=== PATIENT | female | born 2005 | race Caucasian/White ===

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

== ENCOUNTER 2025-03-26 14:14 | Emergency (ER) | payer OTHER, SELFPAY ==
[2025-03-26 14:15] VITALS: BP 116/88; PULSE 103; RESP 20; TEMP 36.4; O2SAT 99; BMI 28.0
[2025-03-26 15:19] LABS: Hematocrit 42.7 % (37-47); Hemoglobin 14.3 g/dL (12.0-15.0); Immature Granulocytes Count 0.070 X10^3/uL (0.0-0.0); Mean Corp Hgb Conc 33.5 g/dL (32-36); Mean Corpuscular Volume 79.7 fL (81-99); Mean Platelet Vol. 10.2 fl (6.2-12.0); NRBC Flagged by Analyzer 0 % (0-5); Platelet Count 285 K/mm3 (150-450); RBC Distribution Width CV 13.5 % (11.6-14.6); RBC Distribution Width SD 38.5 fl (35.1-43.9); Red Blood Count 5.36 M/mm3 (4.2-5.4); White Blood Count 12.0 K/mm3 (4.4-11.0)
--- NOTE | 2025-03-26 15:33 | EX.ED.GENINJ ---
HPI History of Present Illness Chief Complaint: Nausea/Vomiting/Diarrhea Narrative Narrative: Chief complaint and HPI: 20-year-old female with past medical history of depression and anxiety presents for evaluation of nausea, vomiting, diarrhea after taking mom's injection of Ozempic. Patient states that she is trying to lose weight in which she injected herself with her mom's Ozempic today at approximately 8:30 AM. She states within an hour she began having nausea, vomiting, diarrhea. She denies any fever, chills, chest pain, shortness of breath, abdominal pain, dysuria. Does not believe herself to be but is unsure as she has irregular menstrual cycles since discontinuing her control. She does state that her last menstrual cycle was in February. Review of systems: See HPI Medications: As listed on the chart Allergies: As listed on the chart PFSH: Per chart Vital signs: As listed on the chart. Reviewed. Physical exam: Gen: A&O x3, NAD Head: Normocephalic, atraumatic Eyes: No sclera icterus, conjunctiva clear ENT: Mildly dry mucous membranes Neck: Trachea midline, No JVD CV: RRR, no murmurs, no peripheral edema Resp: Lungs CTA BL, no w/r/c GI: Abd soft, non-distended, non-tender, no r/r/g, bellybutton ring without infection Musc: Full ROM, no deformity Skin: Warm, dry Neuro: Alert, oriented, grossly intact, sensation intact Psych: Cooperative, appropriate mood and affect [facility] Medical History Sinus arrhythmia Anxiety and depression Home Medications ?Medication ?Instructions ?Recorded ?Last Taken ?Type buspirone 5 mg tablet 5 mg PO BID #60 tabs 05/02/24 Unknown Rx hydroxyzine pamoate 25 mg capsule 25 mg PO TID PRN PRN 05/02/24 Unknown Rx Anxiety/Insomnia #20 caps paroxetine HCl 10 mg tablet (Paxil) 10 mg PO DAILY #60 tabs 05/02/24 Unknown Rx benztropine 1 mg tablet 1 mg PO TID #6 tabs 05/03/24 Unknown Rx ondansetron 4 mg disintegrating 4 mg PO Q8H PRN PRN Nausea #10 tabs 03/26/25 Unknown Rx tablet Allergy/AdvReac Type Severity Reaction Status Date / Time amoxicillin Allergy Hives Verified 03/26/25 14:18 amoxicillin trihydrate (From Allergy Hives Verified 03/26/25 14:18 Augmentin) potassium clavulanate (From Allergy Hives Verified 03/26/25 14:18 Augmentin) Family History Father Anxiety and depression Mother No problems noted. Surgical History History of nasal surgery History of appendectomy Social History household members: other details: Lives primarily with her mother, occasionally with her father. Smoking Status: Never smoker alcohol intake: never substance use type: does not use EXAM Physical Exam Const Vital Signs: 03/26/25 14:15 03/26/25 16:38 03/26/25 18:00 Temperature 97.6 F L Temperature Source Temporal Pulse Rate 103 H 83 101 H Respiratory Rate 20 H 14 18 Blood Pressure 116/88 H 112/71 97/70 Blood Pressure Mean 97 84 79 Pulse Ox 99 100 99 Oxygen Delivery Method Room Air Room Air Room Air MDM MDM MDM Narrative Medical decision making narrative: 20-year-old female with past medical history of depression and anxiety presents for evaluation of nausea, vomiting, diarrhea after taking mom's injection of Ozempic. Patient states that she is trying to lose weight in which she injected herself with her mom's Ozempic today at approximately 8:30 AM. She states within an hour she began having nausea, vomiting, diarrhea. She denies any abdominal pain. Differential diagnosis includes but is not limited to medication side effect, dehydration, electrolyte abnormality, gastroenteritis. Suspect less likely intra-abdominal pathology such as biliary disease or diverticulitis. UTI and also on the differential. NS bolus and Zofran ordered for symptoms. Laboratory workup ordered. I do not think any CT abdomen pelvis is needed as patient's abdominal exam is benign. CBC with mild leukocytosis of 12. No anemia. Platelets unremarkable. CMP relatively unremarkable. Lipase unremarkable. negative. UA negative for UTI. On reevaluation, patient's nausea, vomiting, diarrhea have improved. Patient's symptoms are likely secondary to adverse side effect from Ozempic. Patient stable to discharge home. Recommended her to stop taking her mother's Ozempic and not to take any medication that is not directly prescribed to her. Follow-up with PCP. She confirmed understand the plan. Patient able to discharge home. Impression: 1. Adverse reaction from medication 2. Nausea and vomiting 3. Diarrhea Lab Data Labs: Laboratory Results - last 24 hr 03/26/25 03/26/25 14:28 16:57 WBC 12.0 H RBC 5.36 Hgb 14.3 Hct 42.7 MCV 79.7 L MCH 26.7 L MCHC 33.5 RDW Std Deviation 38.5 RDW Coeff of Lamonte 13.5 Plt Count 285 MPV 10.2 Immature Gran % (Auto) 0.600 Neut % (Auto) 78.1 H Lymph % (Auto) 15.3 L Ray % (Auto) 5.2 Eos % (Auto) 0.5 Baso % (Auto) 0.3 Absolute Neuts (auto) 9.4 H Absolute Lymphs (auto) 1.84 Nucleated RBC % 0 Sodium 139 Potassium 3.4 Chloride 103 Carbon Dioxide 21.1 Anion Gap 14 BUN 9 Creatinine 0.69 L Estim Creat Clear Calc 128.31 Est GFR (MDRD) Non-Af 127 BUN/Creatinine Ratio 12.3 Glucose 94 Calcium 9.8 Total Bilirubin 0.37 AST 27 ALT 23 Alkaline Phosphatase 58 Total Protein 7.4 Albumin 4.6 Globulin 2.8 Albumin/Globulin Ratio 1.6 Lipase 21 Serum , Qual NEGATIVE Urine Color Yellow Urine Clarity Sl. Cloudy Urine pH 6.5 Ur Specific [place] 1.010 Urine Protein Negative Urine Glucose (UA) Normal Urine Ketones Negative Urine Occult Blood Negative Urine Nitrite Negative Urine Bilirubin Negative Urine Urobilinogen Normal Ur Leukocyte Esterase Negative Urine RBC 0 SEEN Urine WBC 0 SEEN Ur Squamous Epith Cells 0-5 SEEN Urine Bacteria 1+ Urine Mucus 0 SEEN Discharge Plan Triage Chief Complaint: Nausea/Vomiting/Diarrhea ED Provider: Abdirizak Mckenzie Dx/Rx/DC Orders Clinical Impression: Absence of medication side effects Instructions: ED Diet Vomiting Diarrhea Prescriptions: New ondansetron 4 mg tablet,disintegrating 4 mg PO Q8H PRN PRN (Reason: Nausea) Qty: 10 0RF No Action hydroxyzine pamoate 25 mg Capsule 25 mg PO TID PRN PRN (Reason: Anxiety/Insomnia) Qty: 20 0RF Rx Instructions: one or two three times a day as needed for anxiety or sleep paroxetine HCl [Paxil] 10 mg tablet 10 mg PO DAILY Qty: 60 0RF Rx Instructions: one daily for 5 days, then increase to two once a day buspirone 5 mg tablet 5 mg PO BID Qty: 60 0RF benztropine 1 mg tablet 1 mg PO TID Qty: 6 0RF Primary Care Provider: Roxy Ace Referrals: Roxy Ace MD [Primary Care Provider] - 3-5 Days Activity Restrictions/Additional Instructions: Stop taking mother's Ozempic. Do not take any medication that is not directly prescribed to you. Zofran as needed for nausea and vomiting. Follow-up with primary care physician. Print Language: [place] Disposition Disposition: Home, Self Care
[2025-03-26 15:36] LABS: Internal QC Validated? YES +Cl - CLEAR BKGD; Pregnancy, Serum, hCG Quali. NEGATIVE Negative; Record Kit Lot#, Serum Preg. 0000964736
[2025-03-26] MEDS: 0.9% Normal Saline (1000mL) 1,000 ML 1000 ML IV (15:37)
[2025-03-26 15:47] LABS: AST(SGOT) 27 U/L (<=31); Alanine Aminotransfer ALT/SGPT 23 U/L (<=34); Albumin, Serum 4.6 g/dL (3.5-5.0); Alkaline Phosphatase 58 U/L (35-104); Anion Gap 14 (5-15); BUN 9 mg/dL (4-19); BUN/Creat Ratio 12.3 RATIO (10-20); Calcium,Total 9.8 mg/dL (7.6-11.0); Carbon Dioxide 21.1 mmol/L (21.0-32.0); Chloride 103 mmol/L (98-108); Estimated Creatinine Clearance 128.31 ml/min (50-250); Globulin 2.8 g/dL (2.2-4.2); Glucose 94 mg/dL (70-99); Lipase 21 U/L (13-75); Potassium 3.4 mmol/L (3.3-5.1)
[2025-03-26 16:38] VITALS: BP 112/71; PULSE 83; RESP 14; O2SAT 100
[2025-03-26 17:01] LABS: Mucous, Urine 0 SEEN /hpf (<or=2+); Red Blood Cells-Urine 0 SEEN /hpf (0-5)
[2025-03-26 17:24] LABS: Color, Urine Yellow (Yellow); Glucose, Dipstick Normal (Normal); Ketone-Dipstick Negative (Negative); Leukocyte Esterase-Dipstick Negative /ul (Negative); Nitrite-Dipstick Negative (Negative); Occult Blood-Urine Negative /ul (Negative); Protein-Dipstick Negative (Negative); Specific Gravity, Urine 1.010 (1.002-1.030); Urine Bilirubin Dipstick Negative (Negative)
[2025-03-26 17:51] LABS: Squamous Epithelial Cells - UA 0-5 SEEN /hpf (5-10)
[2025-03-26 18:00] VITALS: BP 97/70; PULSE 101; RESP 18; O2SAT 99
[2025-03-26 18:43] VITALS: BP 124/76; PULSE 83; RESP 14; TEMP 36.2; O2SAT 98
== END 2025-03-26 18:44 | disposition home or self-care (01) ==
PROVIDERS: Emergency Provider Surgery; PCP Pediatrics; Visit Provider Surgery
DX: R11.2 Nausea with vomiting, unspecified (principal); R19.7 Diarrhea, unspecified; T38.3X5A Adverse effect of insulin and oral hypoglycemic [antidiabetic] drugs, initial encounter; F41.9 Anxiety disorder, unspecified; F32.A Depression, unspecified
CPT/HCPCS: 80053; 81001; 83690; 84703; 85025; 96361; 96374; 96375; 99284; A4216; J2405